=== PATIENT | male | born 1950 | race Caucasian/White ===

== ENCOUNTER 2023-05-28 06:33 | Inpatient (IN) | payer OTHER, SELFPAY ==
--- NOTE | 2023-04-25 08:01 | CM ---
Patient is scheduled for lumbar spine surgery on 05/28/23. Spoke with patient prior to surgery via telephone. Patient had spine surgery at in 2020. Reintroduced role of the Orthopedic Navigator. Patient reports that he lives with his in a one
story home. There is one step to enter. He currently functions independently. He uses a rollator for long distances and has no other DME. He has never had VN services. PCP is Geoffrey Pacheco.
Discussed orthopedic program, post surgical plans and tentative plan for patient to return home when directed by surgeon. Patient is in agreement with tentative plan and will have support from his when he goes home.
Plan: Orthopedic Navigator will remain available to assist with the care of patient and will reassess discharge needs after surgery.
[2023-05-22 08:43] VITALS: BMI 30.8
[2023-05-22 08:44] LABS: Hematocrit 40.2 % (39.0-52.0); Hemoglobin 14.2 g/dL (13.0-18.0); Mean Corp Hgb Conc. 35.3 g/dL (33.0-37.0); Mean Corpuscular Hgb 32.6 pg (27.0-31.0); Mean Corpuscular Volume 92.2 fL (80.0-94.0); Mean Platelet Volume 9.8 fL (7.4-10.4); Platelet Count 164 10^3/uL (130-400); Red Blood Cell Count 4.36 10^6/uL (4.70-6.10); Red Cell Dist. Width 13.5 % (11.5-14.5); White Blood Cell Count 2.9 10^3/uL (4.8-10.8)
[2023-05-22 10:45] LABS: ALT (SGPT) 18 U/L (0-50); AST (SGOT) 21 U/L (17-59); Albumin 3.8 g/dl (3.5-5.0); Alkaline Phosphatase 63 U/L (38-126); Blood Urea Nitrogen 14 mg/dl (9-20); Calcium 9.1 mg/dl (8.4-10.2); Carbon Dioxide 32 mmol/L (22-30); Chloride 101 mmol/L (98-107); Estimated Creatinine Clearance 103 ml/min; Glucose 83 mg/dl (70-99); Potassium 3.9 mmol/L (3.5-5.1); Sodium 139 mmol/L (135-145); Total Bilirubin 0.8 mg/dl (0.2-1.3); Total Protein 6.2 g/dl (6.3-8.2); eGFR > 60.00
[2023-05-22 13:53] VITALS: BMI 30.8
[2023-05-28] VITALS (15 sets, daily range): BP systolic 123–168; BP diastolic 69–90; BMI 30.8
[2023-05-28] MEDS: LYRICA 150 MG PO (10:04)
[2023-05-28] MEDS: TYLENOL 1000 MG PO ×3 (10:04→21:17)
[2023-05-28] MEDS: CELEBREX 200 MG PO (10:04)
[2023-05-28] MEDS: SKELAXIN 800 MG PO (10:04)
[2023-05-28] MEDS: NORMOSOL-R 1000 IV ×3 (10:05→16:51)
[2023-05-28] MEDS: DILAUDID 0.5 MG IV ×2 (15:21→15:31)
[2023-05-28] MEDS: ULTRAM 50 MG PO ×3 (16:49→23:39)
[2023-05-28] MEDS: ANCEF 5 IV (21:16)
[2023-05-28] MEDS: SENOKOT 17.1999999999999993 MG PO (21:16)
[2023-05-28] MEDS: COLACE 100 MG PO (21:16)
[2023-05-28] MEDS: CYMBALTA DELAYED RELEASE 30 MG PO (21:17)
[2023-05-28] MEDS: LYRICA 75 MG PO (21:17)
[2023-05-29] MEDS: NORMOSOL-R 1000 IV (02:53)
[2023-05-29] MEDS: ULTRAM 50 MG PO ×3 (03:05→12:22)
[2023-05-29] MEDS: ANCEF 5 IV (03:05)
[2023-05-29] MEDS: TYLENOL 1000 MG PO ×2 (03:05→09:31)
[2023-05-29 03:40] VITALS: BP 129/70
[2023-05-29 05:02] LABS: Hematocrit 35.5 % (39.0-52.0); Hemoglobin 12.4 g/dL (13.0-18.0)
[2023-05-29 05:31] LABS: Blood Urea Nitrogen 12 mg/dl (9-20); Calcium 8.4 mg/dl (8.4-10.2); Carbon Dioxide 26 mmol/L (22-30); Chloride 102 mmol/L (98-107); Estimated Creatinine Clearance 120 ml/min; Glucose 133 mg/dl (70-99); Potassium 4.3 mmol/L (3.5-5.1); Sodium 135 mmol/L (135-145); eGFR > 60.00
--- NOTE | 2023-05-29 07:58 | W.DS.TRANS ---
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
-
Discharge Instructions:
Sleep Apnea Risk Intermediate
Instructions:
Stand-Alone Forms: [facility]
Changes to Home Medications: No
Discharge Medications:
DC Medications w/original date entered in [facility]
calcium carbonate 500 mg calcium (1,250 mg) tablet 1,000 mg PO BID Supplement 02/07/21
cyanocobalamin (vitamin B-12) 1,000 mcg tablet 1,000 mcg PO DAILY Supplement 02/07/21
duloxetine 30 mg capsule,delayed release 30 mg PO HS Pain 02/13/21
acetaminophen 500 mg tablet (Tylenol Extra Strength) 1,000 mg PO PRN PRN pain 04/29/23
omega 4-fve-voq-fish oil 1,000 mg (120 mg-180 mg) capsule (Fish Oil) 1 cap PO BID 04/29/23
pregabalin 300 mg capsule (Lyrica) 200 mg PO BID 04/29/23
Home Medication Changes
Pending Results: No
--- NOTE | 2023-05-29 07:58 | W.PN.SP ---
Today's Communication / Plan
-
s/p PSF with instrumatation
PT
D/c today
Subjective / Objective
Subjective Data
PT with some left leg pain
Back is sore
Denies weakness
Objective Data
Vital Signs
Temp Pulse Resp BP Pulse Ox
98.3 F 71 17 129/70 94
05/29/23 03:40 05/29/23 03:40 05/29/23 03:40 05/29/23 03:40 05/29/23 03:40
Intake and Output
05/28/23 05/29/23 05/30/23
06:59 06:59 06:59
Intake Total 2000 / 2000
Output Total 200 / 200
Balance 1800 / 1800
Intake:
Oral fluids 200 / 200
IV fluids (Total) 1800 / 1800
Normosal 600 / 600
Output:
Urine, Voided 200 / 200
Lab Data
05/29/23 04:40
05/29/23 04:40
Physical Exam
-
Stable strength
[2023-05-29 08:04] VITALS: BP 147/66
[2023-05-29] MEDS: COLACE 100 MG PO (08:38)
[2023-05-29] MEDS: SENOKOT 17.1999999999999993 MG PO (08:38)
--- NOTE | 2023-05-29 08:39 | CM ---
Addendum entered by Janeth Milian 05/29/23 12:34:
Patient did well in therapy. He has no concerns about going home.
Original Note:
Reviewed chart and held rounds with PT, OT and RN. Patient had planned lumbar spine surgery with Dr. Jesus on 05/27. Met with patient at bedside. Confirmed information previously obtained for assessment and discussed discharge plans. Patient continues
to plan to return home at discharge. He will have support from his when he goes home. Reviewed that he will work with PT/OT this morning and that discharge needs will depend on his functional status. However, no needs currently identified.
Patient has a rollator at home. He has a back brace but didn't bring it with him; his is bringing it to the hospital this morning.
Patient will use [facility] pharmacy for discharge prescriptions.
[2023-05-29] MEDS: LYRICA 75 MG PO (09:31)
--- NOTE | 2023-05-29 10:20 | W.PN.ORTHO ---
Today's Communication / Plan
-
d/c
Assessment
.
Dressing:
Clean, dry and intact.
Plan
.
Surgery / Date: L1-L4 psf w/ inst. decompression-Dr. Jesus 05/28/23
Activity:
Out of bed.
PT/OT
Discharge Plan: Home
Subjective
.
.:
Patient resting comfortably.
Vital Signs and Labs
.
Vital Signs and Labs:
Lab Results
05/29/23 04:40
05/29/23 04:40
Temp Pulse Resp BP Pulse Ox
98.2 F 67 16 147/66 97
05/29/23 08:04 05/29/23 08:04 05/29/23 08:04 05/29/23 08:04 05/29/23 08:04
Physical Exam
-
HEENT: No pallor, cyanosis, or jaundice. Throat clear.
NECK: Supple. No JVD.
RESPIRATORY: Lungs clear to auscultation.
CVS: S1, S2 normal. RRR.� No murmur, rub or gallop.
ABDOMEN: Soft, non-tender. No distension. BS+/normal.
EXTREMITIES: strength equal, no calf pain with palpation
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 No focal deficits. cosmetic maker grossly intact
--- NOTE | 2023-05-29 10:30 | W.DS.TRANS ---
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
-
Discharge Instructions:
Sleep Apnea Risk Intermediate
Discharge Diagnosis/Procedures L1-L4 psf w/ inst. decompression-Dr. Jesus 05/28/23
Diet As tolerated
Activity No strenuous activity
Driving Restrictions No driving
Instructions:
Stand-Alone Forms: [facility]
Changes to Home Medications: Yes
Discharge Medications:
DC Medications w/original date entered in [employer]
calcium carbonate 500 mg calcium (1,250 mg) tablet 1,000 mg PO BID Supplement 02/07/21
cyanocobalamin (vitamin B-12) 1,000 mcg tablet 1,000 mcg PO DAILY Supplement 02/07/21
duloxetine 30 mg capsule,delayed release 30 mg PO HS Pain 02/13/21
omega 8-[id number]-jkq-fish oil 1,000 mg (120 mg-180 mg) capsule (Fish Oil) 1 cap PO BID 04/29/23
pregabalin 300 mg capsule (Lyrica) 200 mg PO BID 04/29/23
Saccharomyces boulardii 250 mg capsule (Florastor) 250 mg PO BID #1 cap 05/29/23
acetaminophen 500 mg tablet (Tylenol Extra Strength) 1,000 mg PO QID #0 tabs 05/29/23
cephalexin 500 mg capsule 500 mg PO QID infection prevention #20 caps 05/29/23
dexamethasone 4 mg tablet 4 mg PO BID inflammation #6 tabs 05/29/23
docusate sodium 100 mg capsule (Colace) 100 mg PO BID stool softner #1 cap 05/29/23
magnesium hydroxide 400 mg/5 mL oral suspension (Milk of Magnesia) 30 ml PO HS PRN Constipation #1 mL 05/29/23
sennosides 8.6 mg tablet (Senokot) 17.2 mg PO BID laxative #2 tabs 05/29/23
tramadol 50 mg tablet 50 - 100 mg PO Q6H PRN 1 tab moderate, 2 tabs if pain severe #20 tabs 05/29/23
Home Medication Changes
cephalexin 500 mg capsule 500 mg PO QID� infection prevention #20 caps 05/29/23�
dexamethasone 4 mg tablet 4 mg PO BID inflammation #6 tabs 05/29/23�
tramadol 50 mg tablet 50 - 100 mg PO Q6H PRN 1 tab moderate, 2 tabs if pain severe #20 tabs 05/29/23�
Pending Results: No
[2023-05-29 11:56] VITALS: BP 149/70
[2023-05-29 12:00] VITALS: BP 146/66; PULSE 70
[2023-05-29 12:28] VITALS: BP 146/66; PULSE 76
[2023-05-29 21:14] LABS: Hepatitis C Antibody Negative (Negative)
== END 2023-05-29 13:06 | disposition home or self-care (01) | DRG 460 ==
LOC: 2 SOUTH 06:33
PROVIDERS: Physician Assistant Medical; ADMITTING PHYSICIAN Orthopaedic Surgery Orthopaedic Surgery of the Spine; FAMILY PHYSICIAN Family Medicine
PROC: 0SG10J1 Fusion of 2 or more Lumbar Vertebral Joints with Synthetic Substitute, Posterior Approach, Posterior Column, Open Approach (ICD-10-PCS; 2023-05-28)
DX: M48.062 Spinal stenosis, lumbar region with neurogenic claudication (principal); E66.9 Obesity, unspecified; F32.A Depression, unspecified; F41.9 Anxiety disorder, unspecified; E78.5 Hyperlipidemia, unspecified; M41.9 Scoliosis, unspecified; Z68.30 Body mass index [BMI] 30.0-30.9, adult; Z87.891 Personal history of nicotine dependence
CPT/HCPCS: 36415; 72100; 76000; 80048; 80053; 85014; 85018; 85027; 86803; 86850; 86900; 86901; 87070; 93005; 97161; 97166